=== PATIENT | male | born 1945 ===

== ENCOUNTER 2018-03-13 23:51 | Emergency (ER) | payer MEDICARE ==
[2018-03-13 23:59] VITALS: BMI 18.4
[2018-03-14 00:07] VITALS: BP 112/76; PULSE 63; RESP 16; TEMP 98.2; O2SAT 96
--- NOTE | 2018-03-14 00:53 | ED PDOC ---
Arrival/HPI - General Chief Complaint: Allergic Reaction Time Seen by Provider: 03/13/18 23:57 Historian: Patient, Spouse - History of Present Illness Narrative History of Present Illness (Text): you were treated in the ED today for taking an cee seltzer and developed generalized rash but otherwise without any new foods/travel/sick contacts/new detergents/any other new medications/nausea/vomiting/headache/back of throat swelling/change of voice/drooling/dizziness/difficulty breathing/ chest pain/abdomen pain/numbness/tingling/loss of limb function/pain with urination. Time/Duration: 4-6 hours Symptom Onset: Gradual Symptom Course: Unchanged Quality: Other (no pain) Activities at Onset: Rest Context: Sitting Past Medical History - Provider Review Nursing Documentation Reviewed: Yes - Travel History Have you recently traveled outside [place] w/in the past 3 mons?: No - Pulmonary Hx Asthma: Yes - Psychiatric Hx Substance Use: No Family/Social History - Physician Review Nursing Documentation Reviewed: Yes Family/Social History: No Known Family HX Smoking Status: Never Smoked Hx Alcohol Use: No Hx Substance Use: No Allergies/Home Meds Allergies/Adverse Reactions: Allergies Penicillins Allergy (Verified 03/14/18 00:01) RASH Home Medications: Home Meds Medication Instructions Recorded Confirmed Albuterol HFA [Ventolin HFA 90 1 puff INH PRN PRN 03/14/18 03/14/18 mcg/actuation (8 g)] DiphenhydrAMINE [Benadryl] 1 tab PO PRN PRN 03/14/18 03/14/18 Review of Systems - Review of Systems Constitutional: Normal Eyes: Normal ENT: Normal Respiratory: Normal Cardiovascular: Normal Gastrointestinal: Normal Genitourinary Male: Normal Musculoskeletal: Normal Skin: Rash Neurological: Normal Endocrine: Normal Hemo/Lymphatic: Normal Psychiatric: Normal Physical Exam Vital Signs Reviewed: Yes Vital Signs Temp Pulse Resp BP Pulse Ox 03/14/18 00:07 98.2 F 63 16 112/76 96 Temperature: Afebrile Blood Pressure: Normal Pulse: Regular Respiratory Rate: Normal Appearance: Positive for: Well-Appearing, Non-Toxic, Comfortable Pain Distress: None Mental Status: Positive for: Alert and Oriented X 3 - Systems Exam Head: Present: Atraumatic, Normocephalic Pupils: Present: PERRL Extroacular Muscles: Present: EOMI Conjunctiva: Present: Normal Ears: Present: Normal Mouth: Present: Moist Mucous Membranes Pharnyx: Present: Normal Nose (External): Present: Atraumatic Nose (Internal): Present: Normal Inspection Neck: Present: Normal Range of Motion Respiratory/Chest: Present: Clear to Auscultation, Good Air Exchange Cardiovascular: Present: Regular Rate and Rhythm Abdomen: No: Tenderness, Distention, Normal Bowel Sounds, Peritoneal Signs, Rebound, Guarding, McBurney's Point Tender, Rovsing's Sign Present, Hernias, Feeding Tubes, Ostomy Tubes, Mass/Organomegaly, Scars, Other Back: Present: Normal Inspection Upper Extremity: Present: Normal Inspection Lower Extremity: Present: Normal Inspection Neurological: Present: GCS=15, CN II-XII Intact, Speech Normal, Motor Func Grossly Intact Skin: Present: Warm, Rashes Psychiatric: Present: Alert, Oriented x 3, Normal Insight, Normal Concentration Medical Decision Making ED Course and Treatment: you were treated in the ED today for taking an cee seltzer and developed generalized rash but otherwise without any new foods/travel/sick contacts/new detergents/any other new medications/nausea/vomiting/headache/back of throat swelling/change of voice/drooling/dizziness/difficulty breathing/ chest pain/abdomen pain/numbness/tingling/loss of limb function/pain with urination. You were otherwise breathing easily, pink moist lips, smiling and talking with your , good strength/sensation, alert/oriented, walking easily , clear lungs, no abdomen tenderness, no back of throat swelling/redness and able to speak in normal voice, generalized rash without sign of infection, no fever temp 98.2, stable heart rate 63, stable breathing rate 16, excellent oxygen level 96% room air, stable blood pressure 112/76 which we recommend repeat in 2-3 days primary care office to determine further treatment, prednisone, pepcid, benadryl, observation done in the ED with improvement, counselled to stop using cee seltzer and thus discharged home with . 1. Recommend pepcid/prednisone as directed for allergy relief. 2. Recommend benadryl as directed for 24hrs for rash/itching and then as needed for rash/ itching every 8hrs. 3. Recommend follow-up primary care 2 days to review symptoms, referral to allergy clinic. 4. If any worsening pain, fever, chills, nausea, vomiting, difficulty breathing, numbness, loss of limb function, pain with urination or any medical condition then return to the ED. 03/14/18 00:57 Reassessment Condition: Re-examined, Improved - Medication Orders Current Medication Orders: Discontinued Medications Diphenhydramine HCl (Benadryl) 50 mg PO STAT STA Stop: 03/14/18 00:35 Last Admin: 03/14/18 00:46 Dose: 50 mg Famotidine (Pepcid) 20 mg PO STAT STA Stop: 03/14/18 00:35 Last Admin: 03/14/18 00:46 Dose: 20 mg Prednisone (Prednisone Tab) 60 mg PO STAT ONE Stop: 03/14/18 00:35 Last Admin: 03/14/18 00:45 Dose: 60 mg Disposition/Present on Arrival - Present on Arrival Any Indicators Present on Arrival: No History of DVT/PE: No History of Uncontrolled Diabetes: No Urinary Catheter: No History of Decub. Ulcer: No History Surgical Site Infection Following: None - Disposition Have Diagnosis and Disposition been Completed?: Yes Diagnosis: Allergic reaction Disposition: HOME/ ROUTINE Disposition Time: 00:57 Patient Plan: Discharge Condition: IMPROVED Additional Instructions: you were treated in the ED today for taking an cee seltzer and developed generalized rash but otherwise without any new foods/travel/sick contacts/new detergents/any other new medications/nausea/vomiting/headache/back of throat swelling/change of voice/drooling/dizziness/difficulty breathing/ chest pain/abdomen pain/numbness/tingling/loss of limb function/pain with urination. You were otherwise breathing easily, pink moist lips, smiling and talking with your , good strength/sensation, alert/oriented, walking easily , clear lungs, no abdomen tenderness, no back of throat swelling/redness and able to speak in normal voice, generalized rash without sign of infection, no fever temp 98.2, stable heart rate 63, stable breathing rate 16, excellent oxygen level 96% room air, stable blood pressure 112/76 which we recommend repeat in 2-3 days primary care office to determine further treatment, prednisone, pepcid, benadryl, observation done in the ED with improvement, counselled to stop using cee seltzer and thus discharged home with . 1. Recommend pepcid/prednisone as directed for allergy relief. 2. Recommend benadryl as directed for 24hrs for rash/itching and then as needed for rash/ itching every 8hrs. 3. Recommend follow-up primary care 2 days to review symptoms, referral to allergy clinic. 4. If any worsening pain, fever, chills, nausea, vomiting, difficulty breathing, numbness, loss of limb function, pain with urination or any medical condition then return to the ED. Prescriptions: DiphenhydrAMINE [Benadryl] 25 mg PO Q8 PRN 5 Days #20 cap PRN Reason: allergy/rash control Famotidine [Pepcid] 20 mg PO DAILY 5 Days #5 tab predniSONE [Prednisone] 20 mg PO DAILY 5 Days #5 tab
== END 2018-03-14 01:17 | disposition home or self-care (01) ==
LOC: ED 23:51 → MERGE 23:51 → ED 03-14 01:17
DX: T78.40XA Allergy, unspecified, initial encounter (principal)